=== PATIENT | male | born 1965 | race Caucasian/White ===

== ENCOUNTER 2018-10-27 19:49 | Emergency (ER) | payer MEDICAID, SELFPAY ==
[2018-10-27 19:50] VITALS: BP 132/77; PULSE 87; RESP 15; TEMP 36.8; BMI 23.5
[2018-10-27 20:32] LABS: Bacteria 0 SEEN /hpf (None Seen); Color, Urine Yellow (Yellow); Glucose, Dipstick 50 mg/dl (Normal); Ketone-Dipstick Negative (Negative); Leukocyte Esterase-Dipstick 25 /ul (Negative); Mucous, Urine 0 SEEN /hpf (<or=2+); Nitrite-Dipstick Negative (Negative); Occult Blood-Urine Negative /ul (Negative); Protein-Dipstick Negative (Negative); Red Blood Cells-Urine 0 SEEN /hpf (0-5); Specific Gravity, Urine 1.015 (1.002-1.030); Urine Bilirubin Dipstick Negative (Negative); Urine Clarity Clear (Clear); Urine Urobilinogen Normal (Normal)
[2018-10-27 20:44] LABS: Hyaline Cast 0-5 SEEN /lpf (0-5)
[2018-10-27 20:45] LABS: Squamous Epithelial Cells - UA 0-5 SEEN /hpf (0-5); White Blood Cells 0-5 SEEN /hpf (0-5)
[2018-10-27 20:48] LABS: Transitional Epithelial - Ur 0-5 SEEN /hpf (0-5)
--- NOTE | 2018-10-27 21:08 | ED.DCSUM_ITS ---
- ER Visit Summary Date of Service: 10/27/18 Chief Complaint: Rectal polyps and enlarged prostate History of Present Illness: The patient is a 53 M with rectal polyps for about 2 months. They seem to be worsening. They are painful and they bleed at times. He also complains of enlarged prostate. This was found on a CT in the past. He was evaluated in the past for Crohn's. He is having difficulty urinate for the past 3 to 4 months. He has never worn a catheter or had to self cath. He denies any other urinary symptoms. Denies clots or bleeding. Denies fevers. Physical Examination: Afebrile and vital signs are unremarkable. Abdomen is soft and nontender. Rectal exam shows multiple anal warts. No active bleeding. No other abnormal findings. Test Results: Bladder scan was 238. The patient urinated almost 150 mL's but was unable to urinate any further. He declined catheterization. He would like to try Flomax and follow-up with urology. Regarding his anal warts, he was referred to surgery. We will also prescribe some topical medication for pain. Emergency Department Course and Treatment: As above Treatment Plan: As above Disposition: Discharge Impression: 1. Urinary retention 2. Anal warts This note was generated with [employer] dictation software. It may contain incorrect words, spelling, and punctuation that were not noted in review of the chart prior to signing ED Disposition - Plan for ED Patient: Referrals: Care Physician,No Primary [Primary Care Provider] -
--- NOTE | 2018-10-27 21:10 | ED.DEP ---
ED Disposition - Plan for ED Patient: Instructions: URINARY RETENTION, Male Prescriptions: Tamsulosin HCl [Flomax] 0.4 mg PO DAILY #7 cap Prescription Printed Hydrocortisone/Pramoxine [Proctofoam-Hc Foam] 10 gm IA Q6H PRN PRN #20 applicatio PRN Reason: Pain Prescription Printed Referrals: Emanuel Hamilton MD [STAFF PHYSICIAN] - Dorian Light MD [STAFF PHYSICIAN] - Nancy Romo MD [STAFF PHYSICIAN] -
[2018-10-27 21:19] VITALS: RESP 18; O2SAT 99
== END 2018-10-27 21:20 | disposition home or self-care (01) ==
LOC: ED 20:29
PROVIDERS: Emergency Provider Emergency Medicine
DX: R33.8 Other retention of urine (principal); A63.0 Anogenital (venereal) warts
CPT/HCPCS: 81001; 99282